=== PATIENT | female | born 1985 | race Caucasian/White ===

== ENCOUNTER 2016-12-20 03:44 | Inpatient (IN) ==
[2016-12-20] MEDS ORDERED: ONDANSETRON 4 MG/2 ML VIAL IV STA (04:06)
[2016-12-20] MEDS ORDERED: CHARCOAL AQUEOUS 25 GM/120 ML BOTTLE PO STA (04:06)
[2016-12-20] MEDS ORDERED: SODIUM CHLORIDE 0.9% 1,000 ML IV STA (04:06)
--- NOTE | 2016-12-20 04:06 | Emergency Department Note ---
Arrival - Arrival Chief Complaint: Overdose Stated Complaint: dizzy ED Nursing Triage Note: pt presented to triage ambulatory with report of taking approx. 50 tylenol PM. pt states changed mind and called friend for help. pt denies suicidal ideation at this time Mode of Arrival: Ambulatory Time Seen by Provider: 12/20/16 04:04 - History of Present Illness HPI Narrative: The patient took 50 Tylenol PM at approximately 215 a.m. after becoming upset over events holding over the last 2 years. After she took the medication she had a change of heart and came to the emergency department for further evaluation of her overdose. She denies wanting to now and states that she "is over that". The patient does have some nausea but has not vomited. She says that her mouth is somewhat dry. She is not hallucinating. The patient states that she has mild midepigastric abdominal pain which is nonradiating. Date of Last Menstrual Period: hyst Allergies/Adverse Reactions: Allergies Allergy/AdvReac Type Severity Reaction Status Date / Time No Known Allergies Allergy Verified 12/20/16 03:55 Home Medications: Home Medications Medication Instructions Recorded Confirmed Type No Known Home Medications [No 12/20/16 12/20/16 History Known Home Medications] Review of System - Review of System 12 point system: reviewed and no additional remarkable complaints except as stated Medical,Surgical,& Family Hx - Surgical History HEENT Surgeries: Surgical HX of: Tonsilectomy & Adenoidectomy Reproductive Surgeries: Surgical HX of;: Hysterectomy - Social History Smoking Status: Unknown if ever smoked Frequency of Alcohol Use: None Type of Drug Use: Marijuana Exam Physical Examination: The patient appears well-developed and morbidly obese with no acute distress. HEENT exam is unremarkable. There is no scleral icterus. The oropharynx is moist. Tympanic membranes are shiny. The neck appears normal with midline appearance of the trachea. There is full range of motion. The lungs are clear bilaterally. There is symmetric movement of the chest wall with inspiration. No point tenderness is present. The heart has a regular rate and rhythm with no gallops or murmurs. Abdomen demonstrates a normal appearance and is nontender with no rebound or guarding. Normal active bowel sounds are present. The extremities demonstrate no clubbing, cyanosis, or edema and are intact. Normal range of motion is present. Neurological exam is unremarkable. Cranial nerves II through XII were checked and intact. No focal motor sensory deficit is present in the extremities. Vital Signs: Vital Signs Temperature 98.5 F 12/20/16 03:47 Pulse Rate 124 H 12/20/16 03:47 Respiratory Rate 18 12/20/16 03:47 Blood Pressure 133/94 12/20/16 03:47 O2 Sat by Pulse Oximetry 99 12/20/16 03:47 Course - Consultations Consultation #1: I discussed the patient with Dr. Haas the hospitalist. He is overwhelmed with patients at the moment. He is going to try to come see the patient before 7 a.m., however he does not know for sure that he'll go to make it. He will tell the daytime hospitalist about the patient if he cannot see the patient. Time: 05:26 Results - Labs CBC & BMP: 12/20/16 04:52 12/20/16 04:05
--- NOTE | 2016-12-20 04:14 | EKG Report ---
Stationary ECG Study [facility] ER Test Date: 12/20/2016 4:12:44 AM Pat Name: DENNY MEDEIROS Department: Room: Gender: F Lens Blocker: SR : 1985 Requested by: Francisco Crain Order Number: [id number] Reading MD: DK RAMIRES Intervals [place] Rate: 116 P: 66 [place]: 168 QRS: 12 QRSD: 105 T: 32 QT: 279 QTc: 348 Interpretive Statements SINUS TACHYCARDIA NONSPECIFIC T-WAVE ABNORMALITY Electronically Signed On 12-20-16 20:46:29 HAND IRONER by DK RAMIRES [email or web address]
[2016-12-20] MEDS ORDERED: ONDANSETRON 4 MG/2 ML VIAL ONE (04:38)
[2016-12-20] MEDS ORDERED: ACETYLCYSTEINE 6,000 MG/30 ML VIAL IV ONE (04:44)
[2016-12-20 04:55] LABS: Basophils % 0.3 % (0.0-0.8); Eosinophils % 0.4 % (0.00-10.9); Hematocrit 38.1 VOL% (35.7-47.0); Hemoglobin 12.7 GM/DL (12.0-16.0); Immature Granulocytes % 0.3 %; Immature Granulocytes Absolute 0.03 #; Lymphocytes # 2.4 10*3/uL (1.4-4.0); Lymphocytes % 26.8 % (21.3-54.2); Mean Corpuscular HGB Conc 33.3 GM/DL (32-36); Mean Corpuscular Hemoglobin 30 PG (27-34); Mean Corpuscular Volume 88.6 FL (87-102); Mean Platelet Volume 11.1 FL (9.6-12.0); Monocytes # 0.5 10*3/uL (0.11-0.8); Monocytes % 5.5 % (1.7-12.7); Neutrophils # 6.1 10*3/uL (1.4-7.4); Neutrophils % 66.7 % (38.7-73.9); Platelet Count 245 T/CUMM (130-400); Red Cell Distribution Width 13.4 % (9.3-17.3); White Blood Count 9.1 T/CUMM (4-12)
[2016-12-20] MEDS ORDERED: ACETYLCYSTEINE IV STA (05:00)
[2016-12-20] MEDS ORDERED: DEXTROSE 5% IV STA (05:00)
[2016-12-20] MEDS ORDERED: CHARCOAL AQUEOUS 25 GM/120 ML BOTTLE ONE ×2 (05:01→05:02)
--- NOTE | 2016-12-20 05:01 | EKG Report ---
Stationary ECG Study [facility] ER Test Date: 12/20/2016 5:00:21 AM Pat Name: DENNY MEDEIROS Department: Room: Gender: F Wire Hanger: SR : 1985 Requested by: Francisco Crain Order Number: [id number] Reading MD: DK RAMIRES Intervals [place] Rate: 112 P: 64 PA: 167 QRS: 14 QRSD: 105 T: 31 QT: 358 QTc: 424 Interpretive Statements SINUS TACHYCARDIA Electronically Signed On 12-20-16 20:47:19 [employer] by DK RAMIRES [email or web address]
[2016-12-20 05:03] LABS: PT Patient Result 10.1 SECS
[2016-12-20 05:03] LABS: Alanine Aminotransferase 30 U/L (13-56); Albumin 4.2 G/DL (3.4-5.0); Alkaline Phosphatase 73 U/L (45-117); Apearance,Urine CLEAR (Clear); Aspartate Amino Transferase 58 U/L (0-37); Bacteria,Urine Occasional /HPF (Few); Bilirubin,Total < 0.39 MG/DL (0.2-1.0); Bilirubin,Urine Negative (Negative); Blood Urea Nitrogen 9 MG/DL (7-18); Blood, Urine Negative (Negative); Calcium 9.4 MG/DL (8.5-10.1); Glucose 160 MG/DL (74-106); Glucose,Urine (UA) Negative (Negative); Ketones,Urine Negative (Negative); Mucus,Urine Occasional /LPF (Occasional); Nitrite,Urine Negative (Negative); Osmolality,Calculated 282.3 MOS/KG (273-304); Potassium 5.2 MMOL/L (3.5-5.1); Protein,Urine 30 MG/DL; RBC,Urine 1 /HPF (0-4); Sodium 141 MMOL/L (136-145); Squamous Epithelial Cell,Urine Occasional /HPF (0-10); Total Protein 7.6 G/DL (6.4-8.3); Urine Color Yellow (Yellow); Urine Specific Gravity 1.031 (1.001-1.035); Urine Urobilinogen < 2.0 EU/DL (0.2-1.0); WBC,Urine 1 /HPF (0-6)
[2016-12-20 05:05] LABS: ABG Base Excess -1.6 MMOL/L (-2.5-2.5); ABG PCO2 29.6 MM HG (35-48); ABG PH 7.468 (7.35-7.45); ABG PO2 60.8 MM HG (80-95); ABG TCO2 21.9 MMOL/L (23-27); Allen Test Positive; Pt O2 Delivery Device Room Air
[2016-12-20] MEDS ORDERED: ACETYLCYSTEINE INJ 5,000 MG in DEXTROSE 5% 250 ML IV ONE (05:06)
[2016-12-20 05:08] LABS: Barbiturates Screen,Urine Negative (Negative); Benzodiazepines Screen,Urine Negative (Negative); Cannabinoid Screen,Urine Positive (Negative); Opiate Screen,Urine Negative (Negative); Phencyclidine Screen,Urine Negative (Negative)
[2016-12-20 05:10] LABS: Magnesium 2.2 MG/DL (1.8-2.4)
[2016-12-20 05:24] LABS: Lactic Acid 3.1 MMOL/L (0.4-2.0)
--- NOTE | 2016-12-20 06:06 | EKG Report ---
Stationary ECG Study [facility] ER Test Date: 12/20/2016 6:04:25 AM Pat Name: DENNY MEDEIROS Department: Room: Gender: F Hearing Officer: SR : 1985 Requested by: Rolando Chambers Order Number: [id number] Reading MD: DK RAMIRES Intervals [place] Rate: 103 P: 62 NM: 180 QRS: 19 QRSD: 108 T: 40 QT: 372 QTc: 431 Interpretive Statements SINUS TACHYCARDIA Electronically Signed On 12-20-16 20:48:03 MALT SPECIFICATIONS CONTROL ASSISTANT by DK RAMIRES [email or web address]
[2016-12-20] MEDS ORDERED: ALBUTEROL 2.5 MG/3 ML NEB RESP TX PRN (06:53)
[2016-12-20] MEDS ORDERED: ACETYLCYSTEINE IV ONE (07:15)
[2016-12-20] MEDS ORDERED: DEXTROSE 5% IV ONE (07:15)
--- NOTE | 2016-12-20 07:23 | XRay Report ---
History: Overdose Date: 12/20/2016 Study: Chest x-ray AP portable Comparison exam: No previous chest x-ray available The cardiomediastinal silhouette and pulmonary vasculature are unremarkable. The lungs and pleural spaces are clear. The osseous structures are unremarkable. Impression: No acute cardiopulmonary process. Shallow breath PROCEDURE INTERPRETED AT [facility] DEPARTMENT OF RADIOLOGY Final Report Signed by: Dr. Nelda Conner
--- NOTE | 2016-12-20 07:43 | Hospitalist History & Physical ---
<Josiane Marceloda - Last Filed: 12/20/16 08:03> Assessment and Plan - Time spent with patient Time spent with patient: Less than 30 minutes (1) Acetaminophen overdose Status: Acute Assessment and plan: We will admit this patient to critical care for complete work-up. Continue acetylcysteine infusion as previously ordered. We monitor serum acetaminophen levels and hepatic function panels every 4 hours to monitor for hepatotoxicity. Current Visit: Yes (2) Suicidal overdose Status: Acute Assessment and plan: We will place the patient with 1:1 observation and maintain safety precautions. We will consult social media content specialist for psych evaluation for possible inpatient admission after discharge. Current Visit: Yes History of Present Illness Chief complaint: "I am fed up". History of present illness: This is a unfortunate 31 year old female that presents to the ED today with intentional acetaminophen overdose. Client reports ingesting around 50 Tylenol PM tablets on last night. She is reports a "bad argument with her friend" and states that she is "fed up with everything". She denies current suicidal intent; however reports previous suicide attempts in 2009 in which she ingested 40 gabapentin capsules; requiring inpatient hospitalization at [facility]. Per patient report, she is is not being followed by any type of mental health services in the outpatient setting. Home Medications Medication Instructions Recorded Confirmed Type No Known Home Medications [No 12/20/16 12/20/16 History Known Home Medications] Allergies Allergy/AdvReac Type Severity Reaction Status Date / Time No Known Allergies Allergy Verified 12/20/16 03:55 Medical,Surgical,& Family Hx - Surgical History HEENT Surgeries: Surgical HX of: Tonsilectomy & Adenoidectomy Reproductive Surgeries: Surgical HX of;: Hysterectomy - Social History Smoking Status: Never smoker Have you smoked in the last 12 months: Yes (Recreational cannibus use) Frequency of Alcohol Use: None Type of Drug Use: Marijuana Marital Status: Single Lives With:: Alone Functional capacity: independent ambulation 12 point system: reviewed and no additional remarkable complaints except as stated - Constitutional Constitutional: Present: lethargy - EENT Eyes: Present: as per HPI, blurry vision Ears: Present: decreased hearing Nose, mouth and throat: Present: as per HPI - Cardiovascular Cardiovascular: Present: as per HPI - Respiratory Respiratory: Present: as per HPI - Gastrointestinal Gastrointestinal: Present: nausea, vomiting - Genitourinary Genitourinary: Present: as per HPI - Musculoskeletal Musculoskeletal: Present: as per HPI - Neurological Neurological: Present: as per HPI - Psychiatric Psychiatric: Present: as per HPI, anxiety, depression. Absent: suicidal ideation - Endocrine Endocrine: Present: as per HPI - Hematologic/Lymphatic Hematologic/Lymphatic: Present: as per HPI Exam - Constitutional Vitals: Period Temp Pulse Resp BP Sys/Lerner Pulse Ox Last 24 Hr 98.5 F-98.5 F 107-124 18-25 133-155/76-100 98-99 General appearance: mild distress, morbidly obese - Head Head exam: Present: normal inspection, normocephalic, atraumatic - Eye Eye exam: Present: EOMI Pupils: Present: KEVIN - ENT ENT exam: Present: normal exam - Neck Neck exam: Present: normal inspection. Absent: lymphadenopathy, thyromegaly - Respiratory Respiratory exam: Present: clear to auscultation bilaterally - Cardiovascular Cardiovascular exam: Present: regular rate and rhythm. Absent: gallop, JVD, rubs - GI/Abdominal GI/Abdominal exam: Present: normal bowel sounds, other (obese) - Extremities Exam Extremities exam: Present: normal inspection, full ROM. Absent: edema - Back Exam Back exam: Present: normal inspection - Neurological Exam Neurological exam: Present: alert, oriented X3, CN II-XII intact - Psychiatric Psychiatric exam: Present: anxious, depressed - Skin Skin exam: Present: normal color Results - Labs CBC & BMP: 12/20/16 04:52 12/20/16 04:05 Lab Results: I have reviewed the past 24 hour labs - EKG EKG results: interpreted by ERMD EKG shows: sinus rhythm Quality Measures - VTE Deep Vein Thrombosis/Pulmonary Embolism Present on Admission: No <Niya Espinoza - Last Filed: 12/20/16 17:27> Assessment and Plan (1) Acetaminophen overdose Status: Acute Current Visit: Yes Qualifiers: Encounter type: initial encounter Injury intent: intentional self-harm Qualified Code(s): T39.1X2A - Poisoning by 4-Aminophenol derivatives, intentional self-harm, initial encounter (2) Suicidal overdose Status: Acute Current Visit: Yes Qualifiers: Encounter type: initial encounter Qualified Code(s): T50.902A - Poisoning by unspecified drugs, medicaments and biological substances, intentional self- harm, initial encounter History of Present Illness History of present illness: Ms. Lozano is a 31 year old female that overdosed on Tylenol PM then called a friend then came to the ER. This was an intentional OD. She now denies SI or HI. She is admitted to ICU. Her tylenol levels have improved. Medical,Surgical,& Family Hx - Medical History Reproductive: History of: Reproductive Problems (endometriosis) - Surgical History HEENT Surgeries: Surgical HX of: Tonsilectomy & Adenoidectomy Reproductive Surgeries: Surgical HX of;: Hysterectomy Exam - Constitutional Vitals: Period Temp Pulse Resp BP Sys/Lerner Pulse Ox Last 24 Hr 98.9 F 73 18 162/108 98 General appearance: mild distress, morbidly obese - Respiratory Respiratory exam: Present: clear to auscultation bilaterally - GI/Abdominal GI/Abdominal exam: Present: normal bowel sounds, soft. Absent: tenderness, rebound - Skin Skin exam: Present: warm, dry Results - Labs CBC & BMP: 12/20/16 04:52 12/20/16 04:05 Lab Results: I have reviewed the past 24 hour labs
--- NOTE | 2016-12-20 09:45 | EKG Report ---
Stationary ECG Study [facility] ER Test Date: 12/20/2016 9:43:38 AM Pat Name: DENNY MEDEIROS Department: Room: Gender: F Shoe Folder: : 1985 Requested by: Francisco Crain Order Number: [id number] Reading MD: DK RAMIRES Intervals [place] Rate: 94 P: 48 TN: 186 QRS: 18 QRSD: 107 T: 29 QT: 372 QTc: 424 Interpretive Statements SINUS RHYTHM Electronically Signed On 12-20-16 20:56:21 TILE GRINDER by DK RAMIRES [email or web address]
[2016-12-20] MEDS ORDERED: ACETYLCYSTEINE INJ 10,000 MG in DEXTROSE 5% 1,000 ML IV ONE (11:00)
[2016-12-20] MEDS: SODIUM CHLORIDE 0.9% 1,000 ML IV SCH ×2 (15:28→23:42)
[2016-12-20] MEDS: PANTOPRAZOLE 40 MG VIAL IV SCH (15:33)
--- NOTE | 2016-12-20 18:11 | Gastrointestinal Consult Note ---
Assessment and Plan (1) Suicide attempt by acetaminophen overdose Status: Acute Assessment and plan: This patient ingested some 16 g of Tylenol however vomited a good deal of this up and 4 hours later had a level that was below the usual treatment threshold for N-acetylcysteine. As we do not know how good a historian she is, it was elected to go ahead and treat her with the N-acetylcysteine protocol. She will need to complete the 20 hour infusion protocol. She does not appear to have a Tylenol bezoar given the fact that her levels continue to drop appropriately post flushing. Current Visit: Yes (2) Irritable bowel syndrome Status: Acute Assessment and plan: The patient has alternating diarrhea and constipation at baseline, she has had some rectal bleeding in the past in association with impaction. I think we could probably restart her p.o. intake at this point--she is at low risk for nausea vomiting and aspiration. We will continue to monitor her liver function tests. She may consider use of Citrucel as an outpatient. We will consider doing upper endoscopy this admission if she has further nausea/vomiting and/or hematemesis. I think she will likely do fine on Protonix once daily. Current Visit: Yes (3) History of rectal bleeding Status: Acute Assessment and plan: The patient has associated this with hemorrhoids and impaction in the past. At some point she will likely need a colonoscopy. Current Visit: Yes (4) Acetaminophen overdose Status: Acute Assessment and plan: Again this patient did not quite meet the criteria for treatment with N- acetylcysteine protocol based on her nomogram and the times that she gave me. We are unclear as to the veracity of her statements however it is reasonable to complete the 20 hour protocol at this point. Current Visit: Yes Qualifiers: Encounter type: initial encounter Injury intent: intentional self-harm Qualified Code(s): T39.1X2A - Poisoning by 4-Aminophenol derivatives, intentional self-harm, initial encounter History of Present Illness Chief complaint: Tylenol overdose attempt--currently on N-acetylcystine protocol History of present illness: Ms. Lozano is a 31 year old female who has a history of previous attempt at suicide with gabapentin back in 2009 who presents this morning after ingesting approximately 50 Tylenol out of a 65 Tylenol pill bottle for a total of 16.25 g of Tylenol at approximately 0200 this morning--she immediately regretted this and try to make herself throw up and according to records here presented to the emergency room by 4:05 AM at which time her acetaminophen level was 212.2 with a 4 hour level at 0624 of 144.6 micrograms per milliliter. The patient states that she did make herself throw up after ingesting the Tylenol likely resulting in the improving Tylenol level. She has been started on N-acetylcysteine in addition to being given a charcoal/sorbitol purgative upon admission to the hospital. She has not had any stools yet and has not eaten anything today. She is not sleepy and is able to answer historical questions with relative ease. She regrets the suicide attempt. She does have a history of alternating diarrhea constipation and has had severe reflux in the past has been referred to GI in the past as well but has neglected to go due to cost concerns. She has had blood in her stool but admits that this was after impactions in the past. She has not had any bright red blood per rectum lately or black tarry bowel movements. She has some very mild epigastric pain likely due to throwing up and some mild left lower quadrant pain. Home Medications Medication Instructions Recorded Confirmed Type No Known Home Medications [No 12/20/16 12/20/16 History Known Home Medications] Allergies Allergy/AdvReac Type Severity Reaction Status Date / Time No Known Allergies Allergy Verified 12/20/16 03:55 Medical,Surgical,& Family Hx - Medical History Psychological: History of: Depression, Psychiatric Problems (hx:panic attack) Respiratory: History of: Pneumonia, Respiratory Problems (sinusititis) Genitourinary: History of: Recurring Urinary Tract Infections Gastrointestinal: History of: GERD Musculoskeletal: History of: Back/Neck Problems Reproductive: History of: Endometriosis, Reproductive Problems (endometriosis) - Surgical History Cardiac Surgeries: Patient Denies: Cardiac Catheterization Thoracic Surgeries: Patient denies;: Lobectomy HEENT Surgeries: Surgical HX of: Tonsilectomy & Adenoidectomy Abdominal Surgeries: Patient denies: Abdominal Surgery Reproductive Surgeries: Surgical HX of;: Hysterectomy Patient denies;: Genitourinary Surgery, Gynecologic Surgery - Social History Smoking Status: Never smoker Frequency of Alcohol Use: None Type of Drug Use: Marijuana Review of systems: Constitutional: Denies fever, chills, but positive for recent nausea, and vomiting Eyes: Denies dry eyes, and scleral icterus HENT: Denies headaches Cardiovascular: Denies acute chest pain and claudication Respiratory: Denies shortness of breath, wheezing, and difficulty breathing, denies cough Gastrointestinal: As noted in the HPI Genitourinary: Denies dysuria and hematuria Neurologic: Denies vision loss, and loss of sensation Musculoskeletal: Denies joint swelling, joint stiffness, and muscular weakness Psychiatric: Patient does admit to depression but no angelia symptoms Heme-Lymph: Denies easy bruising, lymph node enlargement or tenderness, night sweats, excessive bleeding Allergies-immunologic: Denies pruritus and rhinorrhea Exam - Constitutional Vitals: Period Temp Pulse Resp BP Sys/Lerner Pulse Ox Last 24 Hr 96.9 F-98.9 F 68-74 18-22 146-162/101-122 98 Results - Labs CBC & BMP: 12/20/16 04:52 12/20/16 04:05 Quality Measures - VTE Deep Vein Thrombosis/Pulmonary Embolism Present on Admission: No
[2016-12-21 04:56] LABS: INR 1.1; PT Patient Result 11.2 SECS
[2016-12-21 05:21] LABS: Albumin 3.5 G/DL (3.4-5.0); Bilirubin,Total 0.8 MG/DL (0.2-1.0); Calcium 8.9 MG/DL (8.5-10.1); Magnesium 2.3 MG/DL (1.8-2.4); Osmolality,Calculated 283.8 MOS/KG (273-304); Potassium 3.5 MMOL/L (3.5-5.1); Total Protein 6.1 G/DL (6.4-8.3)
[2016-12-21] MEDS: SODIUM CHLORIDE 0.9% 1,000 ML IV SCH ×2 (08:04→08:55)
--- NOTE | 2016-12-21 08:25 | Hospitalist Progress Note ---
Assessment and Plan (1) Acetaminophen overdose Status: Acute Assessment and plan: Continue N-acetylcysteine infusion until complete. No evidence of liver injury or long-lasting damage. Current Visit: Yes Qualifiers: Encounter type: initial encounter Injury intent: intentional self-harm Qualified Code(s): T39.1X2A - Poisoning by 4-Aminophenol derivatives, intentional self-harm, initial encounter (2) Suicidal overdose Status: Acute Current Visit: Yes Qualifiers: Encounter type: initial encounter Qualified Code(s): T50.902A - Poisoning by unspecified drugs, medicaments and biological substances, intentional self- harm, initial encounter Hospitalist: Subjective Interval history: Patient seen and examined. No acute events overnight. She denies abdominal pain. No further nausea or vomiting. Liver function tests normal. Transfer to the floor today. Exam - Constitutional Vitals: Period Temp Pulse Resp BP Sys/Lerner Pulse Ox Last 24 Hr 96.9 F-98.9 F 60-90 13-22 124-162/80-122 94-100 General appearance: no acute distress - Head Head exam: Present: normal inspection, normocephalic - Eye Eye exam: Present: EOMI - Respiratory Respiratory exam: Present: clear to auscultation bilaterally - Cardiovascular Cardiovascular exam: Present: regular rate and rhythm - GI/Abdominal GI/Abdominal exam: Present: normal bowel sounds, soft. Absent: tenderness, rebound - Extremities Exam Extremities exam: Present: normal inspection, full ROM. Absent: calf tenderness , edema - Neurological Exam Neurological exam: Present: alert, oriented X3 - Psychiatric Psychiatric exam: Present: normal affect, normal mood - Skin Skin exam: Present: normal color, warm, dry Results - Labs CBC & BMP: 12/20/16 04:52 12/21/16 04:16 Lab Results: I have reviewed the past 24 hour labs Quality Measures - VTE Deep Vein Thrombosis/Pulmonary Embolism Present on Admission: No
[2016-12-21] MEDS: PANTOPRAZOLE 40 MG VIAL IV SCH (08:55)
--- NOTE | 2016-12-21 15:01 | Gastrointestinal Progress Note ---
Assessment and Plan (1) Suicide attempt by acetaminophen overdose Status: Acute Assessment and plan: This patient ingested some 16 g of Tylenol however vomited a good deal of this up and 4 hours later had a level that was below the usual treatment threshold for N-acetylcysteine. As we do not know how good a historian she is, it was elected to go ahead and treat her with the N-acetylcysteine protocol. She will need to complete the 20 hour infusion protocol. She does not appear to have a Tylenol bezoar given the fact that her levels continue to drop appropriately post flushing. 12/21/16--Her liver function tests normal again today, the patient has completed her N-acetylcysteine protocol and seems to be tolerating solid food at this point. She can certainly be discharged to inpatient or outpatient psychiatric follow-up as per the hospitalist. Little to offer from a GI standpoint, she can certainly follow up with her primary care provider when she is discharged. Current Visit: Yes (2) Irritable bowel syndrome Status: Acute Assessment and plan: The patient has alternating diarrhea and constipation at baseline, she has had some rectal bleeding in the past in association with impaction. I think we could probably restart her p.o. intake at this point--she is at low risk for nausea vomiting and aspiration. We will continue to monitor her liver function tests. She may consider use of Citrucel as an outpatient. We will consider doing upper endoscopy this admission if she has further nausea/vomiting and/or hematemesis. I think she will likely do fine on Protonix once daily. 12/21/16--given her IBS would certainly suggest use of Citrucel as an outpatient, she can also take Protonix on a daily basis for her underlying reflux symptoms. Likely discharge tomorrow. I am going to sign off the case as there is little else for me to offer this point. Current Visit: Yes (3) History of rectal bleeding Status: Acute Assessment and plan: The patient has associated this with hemorrhoids and impaction in the past. At some point she will likely need a colonoscopy. 12/21/16--Consider colonoscopy as an outpatient if patient desires. Current Visit: Yes (4) Acetaminophen overdose Status: Acute Assessment and plan: Again this patient did not quite meet the criteria for treatment with N- acetylcysteine protocol based on her nomogram and the times that she gave me. We are unclear as to the veracity of her statements however it is reasonable to complete the 20 hour protocol at this point. 12/21/16--as noted above. Current Visit: Yes Qualifiers: Encounter type: initial encounter Injury intent: intentional self-harm Qualified Code(s): T39.1X2A - Poisoning by 4-Aminophenol derivatives, intentional self-harm, initial encounter Gastroenterology - PN: Subj Interval history: No new complaints, N-acetylcysteine infusion has completed, her liver function tests within normal limits and she is eating again without nausea or vomiting. From a GI standpoint she can be discharged to either inpatient or outpatient psychiatric care. Exam (Progress Note) - Constitutional Vitals: Period Temp Pulse Resp BP Sys/Lerner Pulse Ox Last 24 Hr 96.1 F-98.9 F 59-90 13-22 120-180/69-125 94-100 General appearance: no acute distress - Head Head exam: Present: normocephalic - Eye Eye exam: Present: EOMI - Respiratory Respiratory exam: Present: clear to auscultation bilaterally. Absent: rhonchi, stridor, wheezes - Cardiovascular Cardiovascular exam: Present: regular rate and rhythm - GI/Abdominal GI/Abdominal exam: Present: normal bowel sounds, soft. Absent: ascites, distended, tenderness, rebound - Neurological Exam Neurological exam: Present: alert, oriented X3, CN II-XII intact. Absent: motor sensory deficit - Psychiatric Psychiatric exam: Present: normal affect, normal mood - Skin Skin exam: Present: warm Results - Labs CBC & BMP: 12/20/16 04:52 12/21/16 04:16
[2016-12-22 03:59] LABS: Albumin 3.7 G/DL (3.4-5.0); Bilirubin,Direct 0.1 MG/DL (0.0-0.20); Bilirubin,Indirect 1.3 MG/DL (0.0-1.0); Bilirubin,Total 1.4 MG/DL (0.2-1.0); Total Protein 6.3 G/DL (6.4-8.3)
[2016-12-22 08:50] VITALS: BP 120/73
--- NOTE | 2016-12-22 09:31 | Discharge Summary ---
Hospital Course - Hospital Course Hospital Course: 31-year-old white female admitted to the hospital after intentional overdose with Tylenol PM. Initial Tylenol levels were elevated. Liver function tests remain normal. The patient received N-acetylcysteine IV infusion over 20 hour period per protocol. Her Tylenol levels came down within the first 4 hours. Liver function tests have remained normal. The patient is no longer suicidal or homicidal. She is going to be moving back in with her mother. She has outpatient follow-up set up with psychiatry. The patient denies any thoughts of hurting herself or depression at this time. She is being discharged home in the care of her family to follow-up as an outpatient. Again her liver function tests have been normal. She was seen in consultation by gastroenterology during this hospitalization. - Time spent with patient Time with patient DS: Greater than 30 minutes Diagnosis - Discharge Diagnosis (1) Acetaminophen overdose Status: Resolved (2) Suicidal overdose Status: Resolved Discharge Plan - Discharge Data Disposition: Disch To Home/Self Care Condition at Discharge: Stable Discharge Diet: advance to your usual diet Activity: resume usual activities as tolerated Hygiene: no restrictions Weight Bearing at Discharge: full weight bearing - Discharge Medications No Action No Known Home Medications [No Known Home Medications] - Follow Up or Referral - Forms/Instructions Additional Discharge Instructions: Follow-up with psychology/psychiatry as an outpatient. Exam - Constitutional Vitals: Period Temp Pulse Resp BP Sys/Lerner Pulse Ox Last 24 Hr 96.8 F-98.2 F 70-92 18-20 120-158/67-89 96-99 General appearance: no acute distress - Head Head exam: Present: normal inspection, normocephalic, atraumatic - Eye Eye exam: Present: EOMI - Respiratory Respiratory exam: Present: clear to auscultation bilaterally - Cardiovascular Cardiovascular exam: Present: regular rate and rhythm - GI/Abdominal GI/Abdominal exam: Present: normal bowel sounds, soft. Absent: tenderness, rebound - Extremities Exam Extremities exam: Absent: edema Discharge Results Procedures and tests throughout hospitalization: Pending Orders 12/20/16 14:50 MRSA Surveillence, Inf Control Routine Labs on day of discharge: Labs from last 24 hours 12/22/16 01:49 Total Bilirubin 1.40 H Direct Bilirubin 0.1 Indirect Bilirubin 1.3 H AST 9 ALT 19 Alkaline Phosphatase 61 Total Protein 6.3 L Albumin 3.7 DS: Provider Date of admission: 12/20/16 06:53 Primary care physician: . No PCP Attending physician on admission: Niya Espinoza MD Consults: Dr. Caraballo Discharging clinician: Niya Espinoza MD Expected date of discharge: 12/22/16
== END 2016-12-22 11:30 | disposition home or self-care (01) | DRG 918 ==
LOC: N.ED 03:44 → N.EDINP 06:53 → N.CC 13:13 → N.4E 12-21 09:42
PROVIDERS: ADMIT Family Medicine; ATTEND Family Medicine